=== PATIENT | female | born 1980 | race Caucasian/White ===

== ENCOUNTER 2022-01-15 09:29 | Day surgery (SDC) | payer OTHER ==
[~2022-01-15] VITALS: Ht 152.4 cm; Wt 86.2 kg
[2022-01-15] MEDS ORDERED: fentaNYL citrate 0.05 MG/ML VIAL ONE (12:34)
[2022-01-15] MEDS ORDERED: MIDAZOLAM 5 MG/5 ML VIAL ONE (12:34)
[2022-01-15] MEDS ORDERED: LIDOCAINE 2% 100 MG/5 ML UJET TP ONE (12:35)
[2022-01-15] MEDS ORDERED: fentaNYL citrate 0.05 MG/ML VIAL IVP ONE (13:40)
== END 2022-01-15 13:35 | disposition home or self-care (01) ==
LOC: MDS 09:29 → MMU 09:30 → MDS 13:35
PROVIDERS: ATTEND Internal Medicine Gastroenterology
DX: R19.5 Other fecal abnormalities (principal); E66.9 Obesity, unspecified; Z68.37 Body mass index [BMI] 37.0-37.9, adult; Z88.8 Allergy status to other drugs, medicaments and biological substances; Z79.899 Other long term (current) drug therapy; Z98.51 Tubal ligation status; Z20.822 Contact with and (suspected) exposure to COVID-19
CPT/HCPCS: 45378; 87426; J3010; J2250